=== PATIENT | female | born 1965 | race Caucasian/White ===

== ENCOUNTER 2023-01-29 04:51 | Day surgery (SDC) | payer OTHER ==
[2023-01-22 11:43] VITALS: BMI 24.7
[2023-01-29 11:47] VITALS: TEMP 98.6
[2023-01-29 12:19] VITALS: BP 100/55; PULSE 80; RESP 18
== END 2023-01-29 12:20 | disposition home or self-care (01) ==
LOC: JASU-ENDO 04:51
PROVIDERS: ATTEND Student in an Organized Health Care Education/Training Program
PROC: 0DBH8ZX Excision of Cecum, Via Natural or Artificial Opening Endoscopic, Diagnostic (ICD-10-PCS; principal; 2023-01-29 10:45)
DX: Z12.11 Encounter for screening for malignant neoplasm of colon (principal); D12.0 Benign neoplasm of cecum; K63.89 Other specified diseases of intestine; K64.4 Residual hemorrhoidal skin tags
CPT/HCPCS: 88305-TC

== ENCOUNTER 2024-09-04 16:49 | Observation (INO) | payer OTHER ==
[2024-09-04] MEDS ORDERED: NITROGLYCERIN SUBLINGUAL 1/150 0.4 MG TAB ONE (17:08)
[2024-09-04] MEDS ORDERED: ASPIRIN 81 MG CHEWABLE TABLETS ONE (17:09)
[2024-09-04] MEDS: NITROGLYCERIN SUBLINGUAL 1/200 0.3 MG BTL SL ONE (17:09)
[2024-09-04] MEDS: ASPIRIN 81 MG CHEWABLE TABLETS PO ONE (17:10)
[2024-09-04 17:27] LABS: ABSOLUTE IMMATURE GRANULOCYTES 0.01 x10^3/uL (0.0-0.031); BASOPHILS # 0.08 x10^3/uL (0.01-0.08); EOSINOPHIL % 2.3 % (0.7-5.8); EOSINOPHILS # 0.18 x10^3/uL (0.04-0.36); HEMATOCRIT 40.5 % (34.1-44.9); HEMOGLOBIN 13.7 g/dL (11.2-15.7); MCHC 33.8 g/dl (32.2-35.5); MEAN CELL VOLUME 89.2 fl (79.4-94.8); MEAN PLT VOLUME 10.3 fl (9.4-12.3); MONOCYTE # 1.06 x10^3/uL (0.24-0.86); MONOCYTE % 13.4 % (4.7-12.5); PLATELET COUNT 240 x10^3/uL (182-369); RDW 12.4 % (12.3-16.6)
[2024-09-04 17:44] LABS: ALBUMIN 4.5 g/dl (3.4-5.0); ALK PHOS 67 U/L (45-117); ANION GAP 9 mmol/L (4-13); BILIRUBIN,TOTAL 0.3 mg/dl (0.2-1); CALCIUM 9.8 mg/dl (8.5-10.1); CHLORIDE 105 mmol/L (98-107); CO2 26 mmol/L (21-32); CREATININE 0.7 mg/dl (0.6-1.3); GLUCOSE,RANDOM 90 mg/dl (74-106); MAGNESIUM 1.9 mg/dL (1.8-2.4); POTASSIUM 3.6 mmol/L (3.5-5.1); SGOT/AST 20 U/L (15-37); SGPT/ALT 17 U/L (7-52); SODIUM 140 mmol/L (136-145); TOT PROT 6.7 g/dl (6.4-8.2)
[2024-09-04] MEDS ORDERED: FAMOTIDINE 20 MG/50 ML IVPB 20 MG/50 ML MG IVPB ONE (19:39)
[2024-09-04] MEDS: FAMOTIDINE 20 MG/50 ML IVPB 20 MG/50 ML MG IVPB ONE (19:42)
[2024-09-04] MEDS ORDERED: ACETAMINOPHEN 325 MG TABLET (FP) PO PRN (20:20)
[2024-09-04 20:35] VITALS: RESP 18
[2024-09-04] MEDS: DOCUSATE SODIUM 100 MG CAPSULE (FP) PO SCH (22:35)
[2024-09-05] MEDS: ZOLPIDEM TARTRATE 5 MG TABLET PO PRN (01:52)
[2024-09-05] MEDS: SENNOSIDES/DOCUSATE COMBO (SENNA PLUS) TABLET (UD) PO SCH (01:52)
[2024-09-05 05:59] VITALS: BMI 28.0
[2024-09-05] MEDS ORDERED: ACETAMINOPHEN 500 MG TABLET (FP) PO PRN (07:28)
[2024-09-05] MEDS ORDERED: MAG HYDROX/AL HYDROX/SIMETH 30 ML UNIT-DOSE CUP PO PRN (07:44)
[2024-09-05] MEDS: POLYETHYLENE GLYCOL (HEALTHYLAX) 3350 17 GM PACKET PO SCH (09:12)
[2024-09-05] MEDS: PANTOPRAZOLE 40 MG TABLET PO SCH (09:12)
[2024-09-05] MEDS: SOLIFENACIN SUCCINATE 5 MG TAB PO SCH (09:13)
[2024-09-05 09:46] LABS: CALCIUM 8.9 mg/dl (8.5-10.1); CREATININE 0.7 mg/dl (0.6-1.3); POTASSIUM 3.8 mmol/L (3.5-5.1)
[2024-09-05] MEDS: ASPIRIN 81 MG CHEWABLE TABLETS PO SCH (12:07)
[2024-09-05 13:28] LABS: ABSOLUTE IMMATURE GRANULOCYTES 0.01 x10^3/uL (0.0-0.031); BASOPHILS # 0.04 x10^3/uL (0.01-0.08); EOSINOPHIL % 1.9 % (0.7-5.8); EOSINOPHILS # 0.09 x10^3/uL (0.04-0.36); HEMATOCRIT 39.7 % (34.1-44.9); HEMOGLOBIN 13.4 g/dL (11.2-15.7); MCHC 33.8 g/dl (32.2-35.5); MEAN CELL VOLUME 90.8 fl (79.4-94.8); MEAN PLT VOLUME 10.8 fl (9.4-12.3); MONOCYTE # 0.69 x10^3/uL (0.24-0.86); MONOCYTE % 14.8 % (4.7-12.5); PLATELET COUNT 229 x10^3/uL (182-369); RDW 12.6 % (12.3-16.6)
[2024-09-05 14:46] VITALS: BP 108/67; PULSE 71; TEMP 98.3
[2024-09-05] MEDS ORDERED: ATORVASTATIN CA 20 MG TABLET (FP) PO SCH (22:00)
== END 2024-09-05 17:45 | disposition home or self-care (01) ==
LOC: FER 16:49 → FM/S 18:05
PROVIDERS: ADMIT Internal Medicine; ATTEND Internal Medicine
PROC: 3E033GC Introduction of Other Therapeutic Substance into Peripheral Vein, Percutaneous Approach (ICD-10-PCS; principal; 2024-09-04)
DX: R07.89 Other chest pain (principal); R42 Dizziness and giddiness; K59.09 Other constipation; G43.909 Migraine, unspecified, not intractable, without status migrainosus; N32.81 Overactive bladder; G47.00 Insomnia, unspecified
CPT/HCPCS: 36415; 71045-TC-FY; 80048; 80053; 80061; 83036; 83735; 84484; 85025; 93005; 93306-TC; 99285-25; G0378